=== PATIENT | male | born 1990 | race American Indian/Alaskan Native ===

== ENCOUNTER 2019-04-01 10:00 | Emergency (ER) | payer SELFPAY ==
[2019-04-01 10:20] VITALS: BP 148/89
--- NOTE | 2019-04-01 11:00 | Emergency Department Report ---
ED Dysuria HPI - HPI Chief Complaint: Abdominal Pain Stated Complaint: BLADDER PAIN Time Seen by Provider: 04/01/19 10:45 Duration: 2 Days Location of Discomfort: Suprapubic Severity: Mild Symptoms: Dysuria: No, Frequency: No, Suprapubic Pain: Yes, Flank Pain: No, Fever: No, Hematuria: No, Abdominal Pain: No, Previous UTI's: No Other History: PT is a 28-year-old male that comes in with suprapubic discomfort. He is concerned about STDs he has one sexual partner that's female. Patient has no back pain. He's noted no hematuria. He denies discharge.He is extremely anxious about this visit. ED Review of Systems ROS: Stated complaint: BLADDER PAIN Other details as noted in HPI Comment: All other systems reviewed and negative ED Past Medical Hx - Past Medical History Previous Medical History?: No - Surgical History Past Surgical History?: No - Family History Family history: no significant - Social History Smoking Status: Never Smoker Substance Use Type: Alcohol Dysuria Exam - Exam General: Vital signs noted. No distress. Alert and acting appropriately. Exam: Yes Moist Mucous Membranes, No CVA Tenderness, No Abdominal Tenderness, No Rigidity or Guarding ED Course Vital Signs 04/01/19 10:18 Temperature 99.4 F Pulse Rate 95 H Respiratory 18 Rate Blood Pressure 148/89 O2 Sat by Pulse 98 Oximetry ED Medical Decision Making - Medical Decision Making Vital Signs 04/01/19 10:18 Temperature 99.4 F Pulse Rate 95 H Respiratory 18 Rate Blood Pressure 148/89 O2 Sat by Pulse 98 Oximetry TREATED WITH ROCEPHIN AND AZITHROMYCIN I've had a lengthy discussion with Mr. Forbes about the results of his UA. He is extremely anxious about this exposure and once empirically treated. And encouraged him to drink a lot of water today and ongoing. DC HOME WITH DC PLAN OF CARE CALL WITH RESULTS Critical care attestation.: If time is entered above; I have spent that time in minutes in the direct care of this critically ill patient, excluding procedure time. ED Disposition Clinical Impression: Possible exposure to STD, Ketonuria Disposition: DC-01 TO HOME OR SELFCARE Is pt being admited?: No Does the pt Need Aspirin: No Condition: Stable Instructions: Safe Sex (ED) Referrals: RUSSELL EPPERSON MD [Primary Care Provider] - 3-5 Days Time of Disposition: 11:26
[2019-04-01 11:24] LABS: Bacteria,Urine 1+ /HPF (Negative); Bilirubin,Urine NEG (Negative); Blood,Urine NEG (Negative); Calcium Oxalate Crystals,Urine 1+; Color,Urine Amber (Yellow); Mucus,Urine 3+ /HPF
[2019-04-01] MEDS ORDERED: XYLOCAINE 1% MPF 5 mL INFILTRATI ONE (11:32)
[2019-04-01] MEDS ORDERED: ROCEPHIN IM ONE (11:32)
[2019-04-01] MEDS ORDERED: ZITHROMAX PO ONE (11:33)
== END 2019-04-01 12:13 | disposition home or self-care (01) ==
LOC: ED 10:00
DX: R82.4 Acetonuria (principal); R30.0 Dysuria; R10.9 Unspecified abdominal pain
CPT/HCPCS: 81001; 87591; 96372; 99283; J0696

== ENCOUNTER 2019-05-23 13:03 | Emergency (ER) | payer OTHER ==
[2019-05-23 13:20] VITALS: BP 161/98
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
== END 2019-05-23 17:05 | disposition home or self-care (01) ==
LOC: ED 13:03
DX: M54.2 Cervicalgia (principal); M79.651 Pain in right thigh; F17.200 Nicotine dependence, unspecified, uncomplicated; V43.52XA Car driver injured in collision with other type car in traffic accident, initial encounter; Y93.89 Activity, other specified; Y92.488 Other paved roadways as the place of occurrence of the external cause; Y99.8 Other external cause status
CPT/HCPCS: 72040; 99283